=== PATIENT | female | born 1975 | race Caucasian/White ===

== ENCOUNTER 2016-09-19 15:48 | Emergency (ER) | payer BC ==
[2016-09-19 15:53] VITALS: BP 136/85; BMI 34.3
[2016-09-19] MEDS ORDERED: NS 1000 ML 1,000 ML ONE (15:54)
[2016-09-19] MEDS ORDERED: ZOFRAN INJ 4 MG VIAL ONE (15:54)
[2016-09-19] MEDS ORDERED: ZOFRAN INJ 4 MG VIAL IVP ONE (16:09)
[2016-09-19] MEDS ORDERED: NS 1000 ML 1,000 ML IV ONE (16:09)
--- NOTE | 2016-09-19 16:42 | DR.GENAD ---
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 - Source History Provided: Patient - Mode of Arrival Mode of Arrival: Ambulatory - Timing Onset of Chief Complaint: 09/19/16 PMH - PMH Past Medical History: No Past Surgical History: Yes Surgical History: , Cholecystectomy, Hysterectomy - Family History History of Family Medical Conditions: Yes Family Medical History: Cancer, [place], Coronary Artery Disease, Hypertension - Social History Does patient currently use any type of tobacco product: Yes Have you used tobacco products in the last 12 months: Yes Type of Tobacco Use: Cigarettes Does any household member use tobacco: No Alcohol Use: Occasionally Do you use any recreational Drugs:: No Lives With: Family Lives Where: Home - infectious screening In the last 2 months have you had wt loss of >10#?: NO Have you had fever, night sweats or hemotysis?: No Have you traveled outside the country in the last 6 months?: No Isolation: Standard ROS - Review of Systems Eyes: No Symptoms Reported ENTM: No Symptoms Reported Respiratoy: No Symptoms Reported Cardiovascular: No Symptoms Reported Gastrointestinal/Abdominal: No Symptoms Reported Genitourinary: No Symptoms Reported Neurological: No Symptoms Reported Musculoskeletal: No Symptoms Reported Integumentary: No Symptoms Reported Hematologic/Lymphatic: No Symptoms Reported Endocrine: No Symptoms Reported Psychiatric: No Symptoms Reported All Other Systems: Reviewed and Negative PE - Vital Signs Vitals: Temperature 97.7 F Pulse Rate 76 Respiratory Rate 18 Blood Pressure [Left Arm] 110/55 Blood Pressure 136/85 O2 Sat by Pulse Oximetry 100 - General Limitations: No Limitations General Appearance: Anxious - Head Head Exam: Normal Inspection, Atraumatic - Eyes Eye exam: Normal Appearance, PERRL, EOMI - ENT ENT Exam: Normal Exam External Ear Exam: Normal External Inspection TM/Canal Exam: Bilateral Normal Nose Exam: Normal Nose Exam Mouth Exam: Normal Inspection Throat Exam: Normal Inspection - Chest Chest Inspection: Normal Inspection, Symmetric Chest Wall Rise - Respiratory Respiratory Exam: Normal Lung Sounds Bilat Respiratory Exam: Bilateral Clear to Auscultation - Cardiovascular Cardiovascular Exam: Regular Rate, Normal Rhythm - Abdominal Exam Abdominal Exam: Normal Inspection, Normal Bowel Sounds Abdominal Tenderness: negative: RUQ, RLQ, LUQ, LLQ, Epigastrium, Suprapubic, Diffuse, Mild, Moderate, Severe, Other - Extremities Extremities Exam: Normal Inspection - Back Back Exam: Normal Inspection - Neurologic Neurological Exam: Alert, Oriented X3, CN II-XII Intact - Psychiatric Psychiatric Exam: Normal Affect - Skin Skin Exam: Warm, Dry, Intact Course - Reevaluation 1st: Improved ROR - Labs Reviewed Result Diagrams: 09/19/16 16:50 09/19/16 16:50 Laboratory: WBC 7.9 X10^3/uL (3.6-10.0) 09/19/16 16:50 RBC 4.14 X10^6/uL (3.5-5.4) 09/19/16 16:50 Hgb 12.6 g/dL (12.0-16.0) 09/19/16 16:50 Hct 37.1 % (36.0-47.0) 09/19/16 16:50 MCV 89.5 fL (80.0-100.0) 09/19/16 16:50 MCH 30.5 pg (27.0-34.0) 09/19/16 16:50 MCHC 34.1 g/dL (33.0-35.0) 09/19/16 16:50 RDW 13.0 % (11.6-16.5) 09/19/16 16:50 Plt Count 184 X10^3/uL (150.0-450.0) 09/19/16 16:50 MPV 8.8 fL (7.4-11.0) 09/19/16 16:50 Neut % 57.6 % (42.0-75.0) 09/19/16 16:50 Lymph % 33.4 % (21.0-51.0) 09/19/16 16:50 Stanley % 6.0 % (0.0-13.0) 09/19/16 16:50 Eos % 2.0 % (0.9-2.9) 09/19/16 16:50 Baso % 1.0 % (0.2-1.0) 09/19/16 16:50 Neut # 4.6 x10^3/uL (2.2-4.8) 09/19/16 16:50 Lymph # 2.7 X10^3/uL (1.3-2.9) 09/19/16 16:50 Stanley # 0.5 x10^3/uL (0.3-0.8) 09/19/16 16:50 Eos # 0.2 x10^3/uL (0.0-0.2) 09/19/16 16:50 Baso # 0.1 X10^3/uL (0.0-0.1) 09/19/16 16:50 Absolute Nucleated RBC 0.0 /100WBC 09/19/16 16:50 Sodium 145 mmol/L (136-145) 09/19/16 16:50 Corrected Sodium TNP 09/19/16 16:50 Potassium 4.0 mmol/L (3.5-5.1) 09/19/16 16:50 Chloride 109 mmol/L (98-107) H 09/19/16 16:50 Carbon Dioxide 28.7 mmol/L (21-32) 09/19/16 16:50 BUN 21 mg/dL (7-18) H 09/19/16 16:50 Creatinine 1.52 mg/dL (0.55-1.02) H 09/19/16 16:50 Est GFR (MDRD) Af Amer 48 (>60) L 09/19/16 16:50 Est GFR (MDRD) Non-Af 40 (>60) L 09/19/16 16:50 Glucose 101 mg/dL (65-99) H 09/19/16 16:50 Calcium 9.0 mg/dL (8.5-10.1) 09/19/16 16:50 Creatine Kinase 81 Units/L (26-192) 09/19/16 16:50 - Diagnosis Discharge Problem: Heat exhaustion Qualifiers: Encounter type: initial encounter Qualified Code(s): T67.5XXA - Heat exhaustion , unspecified, initial encounter - Discharge Plan Condition: Stable - Follow ups/Referrals Follow ups/Referrals: Gómez Baltazar [Primary Care Provider] - 3 days - Instructions
[2016-09-19 17:04] LABS: BASOPHILS # (AUTO) 0.1 X10^3/uL (0.0-0.1); EOSINOPHILS # (AUTO) 0.2 x10^3/uL (0.0-0.2); HEMATOCRIT 37.1 % (36.0-47.0); HEMOGLOBIN 12.6 g/dL (12.0-16.0); LYMPHOCYTES # (AUTO) 2.7 X10^3/uL (1.3-2.9); LYMPHOCYTES % (AUTO) 33.4 % (21.0-51.0); MEAN CORPUSCULAR HEMOGLOBIN 30.5 pg (27.0-34.0); MEAN CORPUSCULAR HGB CONC 34.1 g/dL (33.0-35.0); MEAN CORPUSCULAR VOLUME 89.5 fL (80.0-100.0); MEAN PLATELET VOLUME 8.8 fL (7.4-11.0); MONOCYTES # (AUTO) 0.5 x10^3/uL (0.3-0.8); NEUTROPHILS # (AUTO) 4.6 x10^3/uL (2.2-4.8); NEUTROPHILS % (AUTO) 57.6 % (42.0-75.0); PLATELET COUNT 184 X10^3/uL (150.0-450.0); RED BLOOD COUNT 4.14 X10^6/uL (3.5-5.4); WHITE BLOOD COUNT 7.9 X10^3/uL (3.6-10.0)
[2016-09-19 17:12] LABS: BLOOD UREA NITROGEN 21 mg/dL (7-18); CARBON DIOXIDE 28.7 mmol/L (21-32); CHLORIDE 109 mmol/L (98-107); CREATINE KINASE 81 Units/L (26-192); CREATININE 1.52 mg/dL (0.55-1.02); GLUCOSE 101 mg/dL (65-99); SODIUM 145 mmol/L (136-145); eGFR BLACK RACES 48 (>60); eGFR NON BLACK RACES 40 (>60)
== END 2016-09-19 18:54 | disposition home or self-care (01) ==
LOC: ER 15:56
DX: T67.5XXA Heat exhaustion, unspecified, initial encounter (principal)
CPT/HCPCS: 36415; 80048; 82550; 85025; 96365; 96374; 99283; A4222; J2405